=== PATIENT | male | born 1980 ===

== ENCOUNTER 2020-12-19 17:59 | Emergency (ER) | payer SELFPAY ==
[2020-12-19 18:07] VITALS: BP 135/79
[2020-12-19] MEDS ORDERED: cephALEXin 500 MG CAP PO ONE (19:10)
[2020-12-19] MEDS ORDERED: traMADol 50 MG TAB PO ONE (19:10)
[2020-12-19] MEDS ORDERED: TETANUS,DIPH,PERTUSS(ACELL) VACCINE 0.5 ML SYRINGE IM ONE (19:10)
--- NOTE | 2020-12-19 19:47 | Emergency Department Report ---
<JOSEPH SMALLS - Last Filed: 12/19/20 19:57> ED General Adult HPI - General Chief complaint: Wound/Laceration Stated complaint: RT LEG LACERATION Time Seen by Provider: 12/19/20 19:09 - Related Data Previous Rx's Medication Instructions Recorded Last Taken Type cephALEXin [Keflex] 500 mg PO Q8HR 7 Days #21 cap 12/19/20 Unknown Rx traMADoL [Ultram] 50 mg PO Q6HR PRN #12 tablet 12/19/20 Unknown Rx Allergies Allergy/AdvReac Type Severity Reaction Status Date / Time No Known Allergies Allergy Unverified 12/19/20 18:07 ED Past Medical Hx - Medications Home Medications: Home Medications Medication Instructions Recorded Confirmed Last Taken Type cephALEXin [Keflex] 500 mg PO Q8HR 7 Days #21 cap 12/19/20 Unknown Rx traMADoL [Ultram] 50 mg PO Q6HR PRN #12 tablet 12/19/20 Unknown Rx - Laceration /Wound Repair Leg Wound's Depth, Shape: linear Wound Explored: no foreign body removed Irrigated w/ Saline (ccs): 100 Anesthesia: 1% Lidocaine Volume Anesthetic (ccs): 8 Wound Repaired With: sutures Suture Size/Type: 3:0 (Ethilon) Number of Sutures: 13 (Continuous) Layer Closure?: No Sterile Dressing Applied?: Yes Progress: Minimal bleeding occurred. Patient tolerated procedure well without any complications. He has full range of motion of the lower leg post procedure ED Disposition Clinical Impression: Laceration of right lower leg Qualifiers: Encounter type: initial encounter Qualified Code(s): S81.811A - Laceration without foreign body, right lower leg, initial encounter Disposition: HOME / SELF CARE / HOMELESS Condition: Stable Instructions: Laceration Care, Adult Additional Instructions: Take medications as prescribed, follow-up with your doctor in 2 days for wound check. Return to emergency department for symptoms of infection as instructed. Return to ED or your doctor in 7 to 10 days for suture removal. Prescriptions: cephALEXin [Keflex] 500 mg PO Q8HR 7 Days #21 cap traMADoL [Ultram] 50 mg PO Q6HR PRN #12 tablet PRN Reason: Pain Referrals: TALI GUNDERSON MD [Staff Physician] - 3-5 Days Forms: Work/School Release Form(ED) <DON NERI - Last Filed: 12/19/20 20:07> ED General Adult HPI - General Source: patient Mode of arrival: Stretcher Limitations: No Limitations - History of Present Illness Initial comments: Patient 40-year-old male who presents for right lower leg laceration 4 inches versus metal sheet metal today. 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 Went to urgent care however they were unable to close it. Patient denies numbness or tingling pain is rated at 4/10 exacerbated by palpation. Pain was controlled by direct pressure self applied, wound is dressed there is no active bleeding at this time. He is alert oriented x3 amatory with steady gait. Last tetanus unknown. Patient is Telugu-speaking brother adult at bedside as specialty cook. Severity scale (0 -10): 3 ED Review of Systems ROS: Stated complaint: RT LEG LACERATION Other details as noted in HPI Constitutional: denies: chills, fever Eyes: denies: eye pain, eye discharge, vision change ENT: denies: ear pain, throat pain Respiratory: denies: cough, shortness of breath, wheezing Cardiovascular: denies: chest pain, palpitations Endocrine: no symptoms reported Gastrointestinal: denies: abdominal pain, nausea, diarrhea Genitourinary: denies: urgency, dysuria Musculoskeletal: other (Leg laceration 4 inches.) Skin: other (Laceration as above). denies: rash, lesions Neurological: denies: headache, weakness, paresthesias Psychiatric: denies: anxiety, depression Hematological/Lymphatic: denies: easy bleeding, easy bruising ED Physical Exam - General Limitations: No Limitations General appearance: alert, in no apparent distress - Head Head exam: Present: atraumatic, normocephalic - Eye Eye exam: Present: normal appearance, EOMI - ENT ENT exam: Present: mucous membranes moist - Neck Neck exam: Present: normal inspection, full ROM. Absent: tenderness - Respiratory Respiratory exam: Present: normal lung sounds bilaterally. Absent: respiratory distress - Cardiovascular Cardiovascular Exam: Present: regular rate, normal rhythm, normal heart sounds. Absent: systolic murmur, diastolic murmur, rubs, gallop - GI/Abdominal GI/Abdominal exam: Present: soft, normal bowel sounds. Absent: distended, tenderness - Rectal Rectal exam: Present: deferred - Extremities Exam Extremities exam: Present: normal inspection, full ROM, normal capillary refill - Expanded Lower Extremity Exam Right Lower Leg exam: Present: full ROM, tenderness, laceration (4 inches superficial nerve muscle or tendon damage. Range of motion is intact and unrestricted strength is 5 5 bilateral distal pulses intact PIPELAYER less than 3 seconds bilateral), erythema. Absent: swelling, abrasion, ecchymosis, deformity, crepidus, dislocation, palpable cord, Domonique's sign Ankle exam: Present: full ROM. Absent: tenderness Foot/Toe exam: Present: full ROM. Absent: tenderness, swelling Neuro vascular tendon exam: Absent: pulse deficit, motor deficit, sensory deficit, extremity cold to touch, foot drop Gait: Positive: observed and normal - Back Exam Back exam: Present: normal inspection, full ROM. Absent: tenderness - Neurological Exam Neurological exam: Present: alert, oriented X3, CN II-XII intact, normal gait - Expanded Neurological Exam Expanded Patient oriented to: Present: person, place, time Speech: Present: fluid speech Motor strength exam: RUE: 5, LUE: 5, RLE: 5, LLE: 5 DTR: ankle (R): 1+, ankle (L): 1+ Best Eye Response ([place]): (4) open spontaneously Best Motor Response ([place]): (6) obeys commands Best Verbal Response ([place]): (5) oriented [place] Total: 15 - Psychiatric Psychiatric exam: Present: normal affect, normal mood - Skin Skin exam: Present: warm, dry, normal color, other (Laceration as above). Absent: rash ED Course Vital Signs 12/19/20 18:03 Temperature 98.8 F Pulse Rate 67 Respiratory 16 Rate Blood Pressure 135/79 [Left] O2 Sat by Pulse 99 Oximetry ED Medical Decision Making - Medical Decision Making Patient for laceration repair see procedure note. Edges well approximated all bleeding is controlled sterile dressing is applied patient given follow-up instructions. Patient verbalized agreement and understanding with same. Patient will be DC'd home with prescriptions. We will follow-up with primary care doctor in 2 to 3 days for wound check. 7 to 10 days to have sutures removed. Patient is currently alert oriented x3 amatory with no acute distress. Critical care attestation.: If time is entered above; I have spent that time in minutes in the direct care of this critically ill patient, excluding procedure time. ED Disposition Is pt being admited?: No Does the pt Need Aspirin: No Time of Disposition: 20:07
== END 2020-12-19 20:26 | disposition home or self-care (01) ==
LOC: ED 17:59
DX: S81.811A Laceration without foreign body, right lower leg, initial encounter (principal); W22.8XXA Striking against or struck by other objects, initial encounter; Y93.89 Activity, other specified; Y92.89 Other specified places as the place of occurrence of the external cause; Y99.8 Other external cause status
CPT/HCPCS: 90471; 90715; 99283